=== PATIENT | male | born 1960 | race Two or more races ===

== ENCOUNTER 2019-08-04 12:30 | Emergency (ER) | payer SELFPAY ==
[~2019-08-04] VITALS: Ht 162.6 cm; Wt 81.6 kg
--- NOTE | 2019-08-04 12:29 | NUR ---
ED Nurse Note: Pt arrived with [address] 834 d/t [address] . pt shows no acute signs of distress pt is cooperaive
[2019-08-04 12:30] VITALS: BP 100/63
--- NOTE | 2019-08-04 12:33 | NUR ---
ED Nurse Note: Pt has multiple traumatic abrasion of face from falling. pt has abrasion onleft mandaeism, cheek, and laceration on left ear.
--- NOTE | 2019-08-04 13:01 | Emergency Room Report ---
History of Present Illness General Chief Complaint: Alcohol Intoxication Source: Patient, EMS (Lazaro Jacobo MD) Present Illness HPI Disclaimer: Please note that this report is being documented using DRAGON technology. This can lead to erroneous entry secondary to incorrect interpretation by the dictating instrument. HPI: 59-year-old male presents for evaluation of alcohol intoxication. He was brought in from the streets by EMS for unsteady gait and apparent fall. Patient is awake and admits to drinking only 2 beers today though seems somewhat confused. He has multiple abrasions over his face which he states is from a fall 3 days ago. Some of the abrasions appear new but he is insistent that no fall happened today. He is denying any complaints at this time. Denies vomiting, abdominal pain, headache, blurred vision. He denies any other drug use. PMH: Alcohol abuse PSH: Reviewed Allergies: Denied Social Hx: Daily alcohol use (Lazaro Jacobo MD) Allergies: Coded Allergies: No Known Allergies (Unverified , 08/04/19) COVID-19 Screening Contact w/high risk pt: No Recent Travel to affected area: No Experienced COVID-19 symptoms?: No COVID-19 Testing performed RESEARCH CHEMIST: No (Lazaro Jacobo MD) Review of Systems All Other Systems: negative except mentioned in HPI (Lazaro Jacobo MD) Physical Exam Vital Signs Date Time Temp Pulse Resp B/P (MAP) Pulse Ox O2 Delivery O2 Flow Rate FiO2 08/04/19 12:26 97.5 73 16 100/63 (75) 97 Room Air General: Awake, no acute distress, appears intoxicated HEENT: Normocephalic. There are extensive abrasions over the nasal bridge, left maxilla, lip, left ear at different stages of healing. Some appear new or may be reinjuries. No active bleeding at this time. No midface instability or facial bone tenderness. Resp: Normal work of breathing Skin: Intact. No abrasions, laceration or rash over the exposed skin MSK: Normal tone and bulk. Moving all extremities. No obvious deformity. Neuro: Awake, appears somewhat intoxicated, answering questions though somewhat unreliable. (Lazaro Jacobo MD) Medical Decision Making Diagnostic Impression: Primary Impression: Acute alcoholic intoxication Additional Impression: Closed fracture of frontal bone ER Course Is a 59-year-old male brought in by EMS for evaluation of alcohol intoxication and possible fall. While some of the patient's facial injuries do appear old and healing some appear to be either new or re-injuries may suggest a second fall. Patient admits to drinking 2 beers earlier today but appears more intoxicated and will obtain labs and a CT scan of the head to confirm. Will update tetanus. 1350: Labs show elevated alcohol level but BMP is within normal limits. CT scan of the head does not show evidence of acute traumatic injury. There is a hypoattenuation region suggestive of either a subacute infarct or sequelae from prior injury which is more consistent with the patient's history. Also finding a nondisplaced fracture of the frontal bone on the right. Patient is awake and will continue to metabolize in the ED. He will be monitored and once clinically sober discharged. Laboratory Tests Test 08/04/19 12:37 Sodium Level 140 MMOL/L (136-145) Potassium Level 4.0 MMOL/L (3.5-5.1) Chloride Level 105 MMOL/L (98-107) Carbon Dioxide Level 27 MMOL/L (21-32) Anion Gap 8 mmol/L (5-15) Blood Urea Nitrogen 5 mg/dL (7-18) L Creatinine 0.7 MG/DL (0.55-1.30) Estimated Glomerular Filtration Rate > 60 mL/min (>60) Glucose Level 133 MG/DL (74-106) H Calcium Level 8.0 MG/DL (8.5-10.1) L Serum Alcohol 336 mg/dL (Lazaro Jacobo MD) ER Course Patient was endorsed to me by Dr. Jacobo. Patient was observed in the emergency department. Patient is noted to be more sober. He was discharged with a steady gait. (Jose Antonio Clifton MD) CT/MRI/US Diagnostic Results CT/MRI/US Diagnostic Results : Impression CT Head IMPRESSION: 1. Hypoattenuation in the inferior left frontal lobe. Differential diagnosis includes subacute to chronic infarct versus sequela of prior injury. Further evaluation could be performed with MRI. 2. Mild left periorbital soft tissue swelling. 3. Nondisplaced fracture in the right frontal bone. Dictated By: Sarika Castillo MD Electronically Signed By: Sarika Castillo MD Signed Date/Time 08/04/19 1330 CC: Lazaro Jacobo MD (Lazaro Jacobo MD) Last Vital Signs Date Time Temp Pulse Resp B/P (MAP) Pulse Ox O2 Delivery O2 Flow Rate FiO2 08/04/19 12:30 73 16 Room Air 08/04/19 12:30 97.5 100/63 97 (Lazaro Jacobo MD) Status: improved (Jose Antonio Clifton MD) Disposition: HOME, SELF-CARE Condition: Stable Scripts Folic Acid* (FOLIC ACID*) 1 Mg Tablet 1 MG ORAL DAILY, #30 TAB Prov: Lazaro Jacobo MD 08/04/19 Thiamine Hcl* (VITAMIN B-1*) 100 Mg Tablet 100 MG ORAL DAILY, #30 TAB 0 Refills Prov: Lazaro Jacobo MD 08/04/19 Bacitracin (BACITRACIN*) 1 Each Packet 1 PACKET TOPIC BID, #30 PACKET 0 Refills Prov: Lazaro Jacobo MD 08/04/19 Lazaro Jacobo MD Aug 04, 2019 13:01 Jose Antonio Clifton MD Aug 04, 2019 20:03
[2019-08-04 13:07] LABS: ANION GAP 8 mmol/L (5-15); BLOOD UREA NITROGEN 5 mg/dL (7-18); CARBON DIOXIDE 27 MMOL/L (21-32); CHLORIDE 105 MMOL/L (98-107); CREATININE 0.7 MG/DL (0.55-1.30); SODIUM 140 MMOL/L (136-145)
[2019-08-04] MEDS ORDERED: Tetanus/Diptheria/Pertussis IM ONE (13:15)
[2019-08-04] MEDS ORDERED: BACITRACIN1 EACH TOPIC (13:17)
--- NOTE | 2019-08-04 13:31 | Diagnostic Imaging Report ---
EXAM: CT Head Without Intravenous Contrast CLINICAL HISTORY: 59-year-old male presents for evaluation of alcohol intoxication. He was brought in from the streets by EMS for unsteady gait and apparent fall. Patient is awake and admits to drinking only 2 beers today though seems somewhat confused. He has multiple abrasions over his face which he states is from a fall 3 days ago. Some of the abrasions appear new but he is insistent that no fall happened today. He is denying any complaints at this time. Denies vomiting, abdominal pain, headache, blurred vision. He denies any other drug use. TECHNIQUE: Axial computed tomography images of the head/brain without intravenous contrast. CTDI is 53.4 mGy and DLP is 1098.9 mGy-cm. One or more of the following dose reduction techniques were used: automated exposure control, adjustment of the mA and/or kV according to patient size, use of iterative reconstruction technique. COMPARISON: None FINDINGS: Brain: Hypoattenuation in the inferior left frontal lobe. Differential diagnosis includes subacute to chronic infarct versus sequela of prior injury. Further evaluation could be performed with MRI. Small amount of encephalomalacia in the right parietal lobe. No hemorrhage. Ventricles: Unremarkable. No ventriculomegaly. Bones/joints: Nondisplaced fracture in the right frontal bone. Soft tissues: Mild left periorbital soft tissue swelling. Sinuses: Mild mucosal thickening in the maxillary sinuses and ethmoid air cells. Near complete opacification of the right frontal sinus. Mastoid air cells: Unremarkable as visualized. No mastoid effusion. IMPRESSION: 1. Hypoattenuation in the inferior left frontal lobe. Differential diagnosis includes subacute to chronic infarct versus sequela of prior injury. Further evaluation could be performed with MRI. 2. Mild left periorbital soft tissue swelling. 3. Nondisplaced fracture in the right frontal bone.
[2019-08-04] MEDS ORDERED: VITAMIN B-1100 MG ORAL (13:53)
[2019-08-04] MEDS ORDERED: FOLIC ACID1 MG ORAL (13:53)
--- NOTE | 2019-08-04 14:23 | NUR ---
ED Nurse Note: Pt asleep in bed, pt shows no acute signs of distress
--- NOTE | 2019-08-04 16:23 | NUR ---
ED Nurse Note: Pt was able to urinate in bottle, pt refuses food and drinks at this time
== END 2019-08-04 20:00 | disposition home or self-care (01) ==
LOC: EDBD 12:30 → EMR 13:45
DX: F10.129 Alcohol abuse with intoxication, unspecified (principal); S02.0XXA Fracture of vault of skull, initial encounter for closed fracture; W19.XXXA Unspecified fall, initial encounter; Y92.9 Unspecified place or not applicable; Z23 Encounter for immunization
CPT/HCPCS: 36415; 70450; 80048; 90471; 90715; 99284; G0480